=== PATIENT | male | born 1990 | race Caucasian/White ===

== ENCOUNTER 2019-03-21 21:22 | Emergency (ER) | payer MEDICAID ==
[~2019-03-21] VITALS: Ht 154.9 cm; Wt 68.0 kg
[2019-03-21 21:25] VITALS: BP 116/72
--- NOTE | 2019-03-21 21:25 | NUR ---
TO BED # 05 AMBULATORY
[2019-03-21] MEDS ORDERED: PENICILLIN G BENZATHINE L-A 1.2 MU/2 ML SYR IM ONE (21:45)
[2019-03-21] MEDS ORDERED: KETOROLAC 60 MG/2 ML VIAL IM ONE (21:45)
--- NOTE | 2019-03-21 21:46 | NUR ---
28 YO M BIB FAMILY PRESENTS TO ED C/O 06/23 SORE THROAT, QUILES AND SUBJECTIVE INTERMITTENT FEVERS X 1 WEEK. PT STATES SORE THROAT IS SHARP, CONSTANT AND IS WORSE WHEN SWALLOWING. TEMPERATURE IN TRIAGE IS 100. DENIES N/V/D, COUGH, CP/SOB. -- PT APPEARS CALM. IS COOPERATIVE, ANSWERING QUESTIONS APPROPRIATELY, BEHAVIOR APPROPRIATE. -- SKIN PINK, WARM, DRY. BREATHING EVEN, UNLABORED. PMH-- DENIES RX-- DENIES
[2019-03-21 22:19] VITALS: BP 116/72
--- NOTE | 2019-03-21 22:19 | NUR ---
Patient discharged with v/s stable. Written and verbal after care instructions given and explained. Patient alert, oriented and verbalized understanding of instructions. Ambulatory with steady gait. All questions addressed prior to discharge. ID band removed. Patient advised to follow up with PMD. Rx of Motrin and Prednisone given. Patient educated on indication of medication including possible reaction and side effects. Opportunity to ask questions provided and answered.
== END 2019-03-21 22:19 | disposition home or self-care (01) ==
LOC: MED 21:22
DX: J02.0 Streptococcal pharyngitis (principal); R51 Headache
CPT/HCPCS: 96372; 99283; J0561; J1885

== ENCOUNTER 2022-02-01 18:48 | Emergency (ER) | payer SELFPAY ==
[~2022-02-01] VITALS: Ht 162.6 cm; Wt 73.7 kg
[2022-02-01 18:58] VITALS: BP 123/73
[2022-02-01 19:54] LABS: BASOPHILS % (AUTO) 0.8 % (0.0-2.0); EOSINOPHILS # (AUTO) 0.1 K/uL (0-0.4); EOSINOPHILS % (AUTO) 1.5 % (0.0-4.0); HEMATOCRIT 46.3 % (36-52); HEMOGLOBIN 15.7 g/dL (12.0-18.0); LYMPHOCYTES # (AUTO) 2.5 K/uL (2.0-11.5); LYMPHOCYTES % (AUTO) 47.8 % (20.5-51.1); MEAN CORPUSCULAR HEMOGLOBIN 29 pg (27-31); MEAN CORPUSCULAR HGB CONC 34 g/dL (33-37); MEAN CORPUSCULAR VOLUME 86.4 fL (80-94); MONOCYTES # (AUTO) 0.3 K/uL (0.8-1.0); MONOCYTES % (AUTO) 6.3 % (1.7-9.3); NEUTROPHILS # (AUTO) 2.3 K/uL (1.8-7.7); NEUTROPHILS % (AUTO) 43.6 % (42.2-75.2); PLATELET COUNT (AUTO) 252 K/uL (140-450); RED BLOOD CELL COUNT(AUTO) 5.36 MIL/uL (4.20-6.10); WHITE BLOOD COUNT (AUTO) 5.2 K/uL (4.8-10.8)
[2022-02-01 20:10] LABS: ALBUMIN 4.4 g/dL (3.4-5.0); ANION GAP 9.7 (8-16); CARBON DIOXIDE 28.3 mmol/L (21-32); CREATININE 0.9 mg/dL (0.6-1.3); TOTAL BILIRUBIN 0.4 mg/dL (0.0-1.0)
--- NOTE | 2022-02-01 20:15 | NUR ---
PT TAKEN TO BED 3
--- NOTE | 2022-02-01 20:24 | NUR ---
31 Y/O MALE BIBS, C/O CP SINCE SATURDAY. PATIENT PRESENTS TO ED WITH INTERMITENT CP RADIATING TO HIS LEFT ARM AND DESCRIBES NUMBNESS TO THE ARM AND PRESSURE IN HIS CHEST. PT STATES HE WAS DANCING AT A LIBERTAR[employer] ON SATURDAY AND FELT THE CHEST PRESSURE AND IT HAS BEENGETTING WORSE SINCE THEN. DENIES N/V/D; SKIN IS PINK/WARM/DRY; AAOX4 WITH EVEN AND STEADY GAIT; HR EVEN AND REGULAR; PT DENIES ANY FEVER, CP, SOB, OR COUGH AT THIS TIME; PATIENT STATES PAIN OF 0/10 AT THIS TIME; VSS; PATIENT POSITIONED FOR COMFORT; HOB ELEVATED; BEDRAILS UP X2; BED DOWN. ER MD MADE AWARE OF PT STATUS.
--- NOTE | 2022-02-01 20:49 | NUR ---
Dr. Real examining patient.
--- NOTE | 2022-02-01 21:02 | NUR ---
UA COLLECTED AND GIVEN TO RECRUITMENT ASSISTANT
--- NOTE | 2022-02-01 21:14 | NUR ---
X-Ray at bedside.
[2022-02-01 21:33] LABS: BARBITURATE, URINE NEGATIVE ng/ml (NEG <=200); BENZODIAZEPINE, URINE NEGATIVE ng/mL (NEG <=200); CANNABINOID, URINE NEGATIVE ng/mL (NEG <=50); COCAINE, URINE NEGATIVE ng/mL (NEG <=300); OPIATE, URINE NEGATIVE ng/mL (NEG <=2000); PHENCYCLIDINE SCREEN,URINE NEGATIVE ng/mL (NEG <=25)
[2022-02-01] MEDS ORDERED: NAPR-54 PO (21:43)
--- NOTE | 2022-02-01 22:09 | NUR ---
Federica olvera in [facility] - 02/01/22 at [address] Muñoz examining patient.
[2022-02-01 22:27] VITALS: BP 114/65
--- NOTE | 2022-02-01 22:28 | NUR ---
Patient discharged with v/s stable. Written and verbal after care instructions given and explained. Patient alert, oriented and verbalized understanding of instructions. Ambulatory with steady gait. All questions addressed prior to discharge. ID band removed. Patient advised to follow up with PMD. Rx of NAPROXEN given. Patient educated on indication of medication including possible reaction and side effects. Opportunity to ask questions provided and answered. VSS, A/OX4, AMBULATORY, UNLABORED BREATHING, AND CALM DEMEANOR.
== END 2022-02-01 22:28 | disposition home or self-care (01) ==
LOC: MED 18:48
DX: R07.89 Other chest pain (principal); M79.602 Pain in left arm; Z79.899 Other long term (current) drug therapy
CPT/HCPCS: 36415; 71045; 80053; 80305; 84484; 85025; 93005; 99285